=== PATIENT | male | born 1975 | race African-American/Black ===

== ENCOUNTER 2019-08-07 19:26 | Inpatient (IN) | payer MEDICAID ==
[~2019-08-07] VITALS: Ht 167.6 cm; Wt 68.9 kg
[2019-08-07] MEDS ORDERED: OLANZapine 5 MG RAPDIS TABLET PO PRN (21:00)
[2019-08-07] MEDS ORDERED: LORazepam 2 MG TABLET PO PRN (21:00)
[2019-08-08 11:46] VITALS: BP 122/85
[2019-08-08] MEDS ORDERED: INFLUENZA VIRUS VACCINE QVS 2019-20 (3YR+)/PF 60 MCG/0.5 ML SYRINGE IM ONE (12:15)
[2019-08-08] MEDS ORDERED: PNEUMOCOCCAL VACCINE POLYVALENT 0.5 ML VIAL [PPSV23] IM ONE (12:15)
[2019-08-08] MEDS ORDERED: ACETAMINOPHEN 325 MG TABLET PO PRN (14:00)
[2019-08-08] MEDS ORDERED: MAG HYDROX/AL HYDROX/SIMETH ES 30 ML SUSPENSION UDCUP PO PRN (14:00)
[2019-08-08] MEDS ORDERED: HydrOXYzine PAMOATE 50 MG CAPSULE PO PRN (14:00)
[2019-08-08] MEDS ORDERED: LOPERAMIDE HCL 2 MG CAPSULE PO PRN (14:00)
[2019-08-08] MEDS ORDERED: OLANZapine 5 MG RAPDIS TABLET PO PRN (14:00)
[2019-08-08] MEDS ORDERED: TUBERCULIN, PURIFIED PROTEIN DERIVATIVE 5 TU/0.1 ML SYRINGE ID ONE (14:00)
[2019-08-08] MEDS ORDERED: GuaiFENesin/D-METHORPHAN [SUGAR-FREE] 200-20MG/10 ML SYRUP UDCUP PO PRN (14:00)
[2019-08-08] MEDS ORDERED: MAGNESIUM HYDROXIDE SUSPENSION 30 ML UDCUP PO PRN (14:00)
[2019-08-08] MEDS ORDERED: PROMETHAZINE HCL 25 MG TABLET PO PRN (14:00)
[2019-08-08] MEDS ORDERED: CYANOCOBALAMIN 1,000 MCG/ML VIAL IM ONE (14:00)
[2019-08-08 16:10] VITALS: BP 137/91
[2019-08-08] MEDS: THIAMINE HCL 100 MG TABLET PO SCH (17:00)
[2019-08-08] MEDS: OLANZapine 5 MG RAPDIS TABLET PO SCH (21:00)
[2019-08-08] MEDS: ZOLPIDEM TARTRATE 10 MG TABLET PO PRN (21:06)
[2019-08-09 05:34] VITALS: BP 131/84
[2019-08-09 07:25] LABS: BASOPHILS % (AUTO) 0.4 % (0.0-2.0); EOSINOPHILS % (AUTO) 1.8 % (1.0-6.0); HEMATOCRIT 42.6 % (41-53); HEMOGLOBIN 14.6 g/dL (13.5-17.5); LYMPHOCYTES % (AUTO) 37.6 % (22.0-44.0); MEAN CORPUSCULAR HEMOGLOBIN 29.9 pg (26.0-34.0); MEAN CORPUSCULAR HGB CONC 34.3 G/dL (31.0-37.0); MEAN CORPUSCULAR VOLUME 87 fL (80-100); MONOCYTES # (AUTO) 0.5 K/uL (0.1-1.0); MONOCYTES % (AUTO) 5.7 % (2.0-9.0); NEUTROPHILS # (AUTO) 4.3 K/uL (1.8-7.7); NEUTROPHILS % (AUTO) 54.5 % (40.0-70.0); PLATELET COUNT (AUTO) 257 K/uL (150-450); RED BLOOD CELL COUNT(AUTO) 4.89 MIL/uL (4.50-5.90); RED CELL DISTRIBUTION WIDTH 13.6 % (11.5-14.5)
[2019-08-09 07:41] LABS: HEMOGLOBIN A1C 5.8 % (4.5-6.2)
[2019-08-09 07:48] LABS: ALANINE AMINOTRANSFERASE 25 U/L (12-78); ALBUMIN 3.3 g/dL (3.4-5.0); ALKALINE PHOSPHATASE 73 U/L (46-116); ANION GAP 7 mmol/L (8-16); ASPARTATE AMINOTRANSFERASE 16 U/L (15-37); BILIRUBIN,TOTAL 0.3 mg/dL (0.1-1.0); CALCIUM, TOTAL 8.2 mg/dL (8.8-10.5); CARBON DIOXIDE 29 mmol/L (22-29); CHLORIDE 104 mmol/L (98-107); CHOLESTEROL 136 mg/dL (131-200); CREATININE 0.93 mg/dL (0.60-1.30); FREE T4 (FREE THYROXINE) 0.94 ng/dL (0.76-1.46); GLOMERULAR FILTR. RATE CALC > 60 mL/min (>60); GLUCOSE,RANDOM 135 mg/dL (70-110); HDL CHOLESTEROL 34 mg/dL (40-60); LDL CHOL (CALC.) 79 mg/dL (0-130); POTASSIUM 3.8 mmol/L (3.5-5.1); SODIUM SERUM 140 mmol/L (136-145); TOTAL PROTEIN, SERUM 6.6 g/dL (6.4-8.2); TRIGLYCERIDES 117 mg/dL (15-150); UREA NITROGEN, BLOOD 8 mg/dL (7-18)
[2019-08-09 08:01] VITALS: BP 128/81
[2019-08-09] MEDS: MULTIVITAMINS WITH MINERALS, THERAPEUTIC TABLET PO SCH (08:16)
[2019-08-09] MEDS: FOLIC ACID 1 MG TABLET PO SCH (08:16)
[2019-08-09] MEDS: THIAMINE HCL 100 MG TABLET PO SCH ×2 (08:16→17:00)
[2019-08-09 13:59] VITALS: BP 121/67
[2019-08-09 16:21] VITALS: BP 134/84
[2019-08-09] MEDS ORDERED: OLAN5TAB30 PO (17:06)
[2019-08-09] MEDS: OLANZapine 5 MG RAPDIS TABLET PO SCH (20:46)
[2019-08-09] MEDS: ZOLPIDEM TARTRATE 10 MG TABLET PO PRN (20:46)
[2019-08-10 06:07] VITALS: BP 119/84
[2019-08-10] MEDS: MULTIVITAMINS WITH MINERALS, THERAPEUTIC TABLET PO SCH (08:31)
[2019-08-10] MEDS: FOLIC ACID 1 MG TABLET PO SCH (08:31)
[2019-08-10] MEDS: THIAMINE HCL 100 MG TABLET PO SCH (08:31)
== END 2019-08-10 11:19 | disposition home or self-care (01) | DRG 750 ==
LOC: EMS 19:27 → B3A 08-08 07:06
PROVIDERS: ADMIT Psychiatry & Neurology Psychiatry; ATTEND Psychiatry & Neurology Psychiatry
DX: F25.9 Schizoaffective disorder, unspecified (principal); Z91.19 Patient's noncompliance with other medical treatment and regimen; F17.210 Nicotine dependence, cigarettes, uncomplicated; F60.0 Paranoid personality disorder; Z65.3 Problems related to other legal circumstances; Z79.899 Other long term (current) drug therapy
CPT/HCPCS: 83036; 84439; 84443; 86592